=== PATIENT | male | born 1990 | race Caucasian/White ===

== ENCOUNTER 2017-10-23 10:54 | Emergency (ER) | payer OTHER ==
[~2017-10-23] VITALS: Ht 182.9 cm; Wt 70.3 kg
[2017-10-23] MEDS ORDERED: Amoxicillin500 MG PO (12:09)
[2018-07-29] MEDS ORDERED: MIRT30 PO (09:52)
[2018-07-29] MEDS ORDERED: Zantac150 MG PO (09:52)
== END 2017-10-23 12:29 | disposition home or self-care (01) ==
LOC: ER 10:54
DX: M27.2 Inflammatory conditions of jaws (principal); K04.7 Periapical abscess without sinus; F17.200 Nicotine dependence, unspecified, uncomplicated
CPT/HCPCS: 41800; 70110; 99283

== ENCOUNTER 2017-11-25 19:50 | Emergency (ER) | payer OTHER ==
[~2017-11-25] VITALS: Ht 182.9 cm; Wt 77.1 kg
[~2017-11-25 19:50] MED LIST: Amoxicillin500 MG PO
[2018-07-29] MEDS ORDERED: Zantac150 MG PO (09:52)
[2018-07-29] MEDS ORDERED: MIRT30 PO (09:52)
== END 2017-11-25 20:55 | disposition left against medical advice (07) ==
LOC: ER 19:50
DX: Z53.21 Procedure and treatment not carried out due to patient leaving prior to being seen by health care provider (principal)
CPT/HCPCS: 99281

== ENCOUNTER 2017-12-16 21:45 | Emergency (ER) | payer OTHER ==
[~2017-12-16] VITALS: Ht 182.9 cm; Wt 68.0 kg
[2017-12-16] MEDS ORDERED: NAPR550 PO (23:34)
[2017-12-16] MEDS ORDERED: Crutch1 EACH MISC (23:34)
[2018-07-29] MEDS ORDERED: MIRT30 PO (09:52)
[2018-07-29] MEDS ORDERED: Zantac150 MG PO (09:52)
== END 2017-12-16 23:45 | disposition home or self-care (01) ==
LOC: ER 21:45
DX: S93.601A Unspecified sprain of right foot, initial encounter (principal); F17.210 Nicotine dependence, cigarettes, uncomplicated; X50.9XXA Other and unspecified overexertion or strenuous movements or postures, initial encounter
CPT/HCPCS: 73630; 99283

== ENCOUNTER 2018-06-06 20:34 | Emergency (ER) | payer OTHER ==
[~2018-06-06] VITALS: Ht 182.9 cm; Wt 98.9 kg
[~2018-06-06 20:34] MED LIST changes: +Crutch1 EACH MISC; +NAPR550 PO
== END 2018-06-06 22:22 | disposition home or self-care (01) ==
LOC: ER 20:34
DX: M79.641 Pain in right hand (principal); Z87.81 Personal history of (healed) traumatic fracture; W22.8XXA Striking against or struck by other objects, initial encounter; F17.200 Nicotine dependence, unspecified, uncomplicated
CPT/HCPCS: 29125; 73130; 99283-25

== ENCOUNTER 2018-06-07 11:39 | Emergency (ER) | payer OTHER ==
[~2018-06-07] VITALS: Ht 182.9 cm; Wt 98.9 kg
== END 2018-06-07 12:20 | disposition home or self-care (01) ==
LOC: ER 11:39
DX: Z47.89 Encounter for other orthopedic aftercare (principal); Z87.81 Personal history of (healed) traumatic fracture; F17.200 Nicotine dependence, unspecified, uncomplicated
CPT/HCPCS: 99282

== ENCOUNTER 2018-06-10 11:48 | Emergency (ER) | payer OTHER ==
[~2018-06-10] VITALS: Ht 182.9 cm; Wt 98.9 kg
== END 2018-06-10 12:35 | disposition home or self-care (01) ==
LOC: ER 11:48
DX: Z47.89 Encounter for other orthopedic aftercare (principal); Z87.81 Personal history of (healed) traumatic fracture
CPT/HCPCS: 99282

== ENCOUNTER 2018-06-11 23:23 | Emergency (ER) | payer OTHER ==
[~2018-06-11] VITALS: Ht 182.9 cm; Wt 98.9 kg
== END 2018-06-12 01:00 | disposition left against medical advice (07) ==
LOC: ER 23:23
DX: Z53.21 Procedure and treatment not carried out due to patient leaving prior to being seen by health care provider (principal)

== ENCOUNTER 2018-06-13 12:19 | Emergency (ER) | payer OTHER ==
[~2018-06-13] VITALS: Ht 182.9 cm; Wt 98.9 kg
== END 2018-06-13 12:53 | disposition home or self-care (01) ==
LOC: ER 12:19
DX: M79.641 Pain in right hand (principal); F17.210 Nicotine dependence, cigarettes, uncomplicated
CPT/HCPCS: 29125; 99282

== ENCOUNTER 2018-06-17 11:03 | Emergency (ER) | payer OTHER ==
[~2018-06-17] VITALS: Ht 182.9 cm; Wt 98.9 kg
== END 2018-06-17 11:50 | disposition left against medical advice (07) ==
LOC: ER 11:03
DX: Z53.21 Procedure and treatment not carried out due to patient leaving prior to being seen by health care provider (principal)

== ENCOUNTER 2019-05-16 20:54 | Emergency (ER) | payer OTHER ==
[~2019-05-16] VITALS: Ht 182.9 cm; Wt 68.0 kg
[~2019-05-16 20:54] MED LIST changes: +MIRT30 PO; +Zantac150 MG PO
[2019-05-16] MEDS ORDERED: IBU800 MG PO (21:45)
[2019-05-16] MEDS ORDERED: ONDA4ODT MM (21:45)
== END 2019-05-16 21:58 | disposition home or self-care (01) ==
LOC: ER 20:54
DX: S62.102A Fracture of unspecified carpal bone, left wrist, initial encounter for closed fracture (principal); F17.210 Nicotine dependence, cigarettes, uncomplicated; V19.3XXA Pedal cyclist (driver) (passenger) injured in unspecified nontraffic accident, initial encounter
CPT/HCPCS: 29125; 73080; 73100; 99283-25

== ENCOUNTER 2020-01-10 21:41 | Emergency (ER) | payer OTHER ==
[~2020-01-10 21:41] MED LIST changes: +IBU800 MG PO; +ONDA4ODT MM
== END 2020-01-10 21:59 | disposition left against medical advice (07) ==
LOC: ER 21:41
DX: Z53.21 Procedure and treatment not carried out due to patient leaving prior to being seen by health care provider (principal)

== ENCOUNTER 2020-06-03 18:18 | Emergency (ER) | payer OTHER ==
[~2020-06-03] VITALS: Ht 182.9 cm; Wt 74.8 kg
[2020-06-03] MEDS ORDERED: IBUP600 PO (18:33)
[2020-06-03] MEDS ORDERED: Amoxicillin875 MG PO (18:33)
[2020-06-03] MEDS ORDERED: PAROEX473 ML MM (18:33)
== END 2020-06-03 18:45 | disposition home or self-care (01) ==
LOC: ER 18:18
DX: K04.7 Periapical abscess without sinus (principal); F17.210 Nicotine dependence, cigarettes, uncomplicated
CPT/HCPCS: 99283; A9270; A9270-GY

== ENCOUNTER 2020-09-30 14:20 | Emergency (ER) | payer OTHER ==
[~2020-09-30] VITALS: Ht 182.9 cm; Wt 77.1 kg
[~2020-09-30 14:20] MED LIST changes: +Amoxicillin875 MG PO; +IBUP600 PO; +PAROEX473 ML MM
== END 2020-09-30 16:25 | disposition home or self-care (01) ==
LOC: ER 14:20
DX: R11.2 Nausea with vomiting, unspecified (principal); Z53.21 Procedure and treatment not carried out due to patient leaving prior to being seen by health care provider
CPT/HCPCS: 99282